=== PATIENT | female | born 1955 | race Caucasian/White ===

== ENCOUNTER → 2018-08-21 | Outpatient (CLI) | payer OTHER | END | disposition home or self-care (01) | LOC: CFH 13:28 | PROVIDERS: ATTEND Obstetrics & Gynecology | DX: Z12.31 Encounter for screening mammogram for malignant neoplasm of breast (principal) | CPT/HCPCS: 77063; 77067 ==

== ENCOUNTER → 2020-07-14 | Outpatient (CLI) | payer OTHER ==
[2020-07-14 14:34] LABS: ALANINE AMINOTRANSFERASE 24 U/L (12-78); ALBUMIN 4.1 g/dL (3.4-5.0); ANION GAP 4 mmol/L (5-15); CALCIUM 8.8 mg/dL (8.5-10.1); CHLORIDE 109 mmol/L (98-107); CHOLESTEROL, TOTAL 188 mg/dL (140-239); CREATININE 0.82 mg/dL (0.55-1.02)
[2020-07-14 14:37] LABS: BASOPHILS % (AUTO) 1 % (0-1); EOSINOPHILS % (AUTO) 2 % (1-7); LYMPHOCYTES % (AUTO) 30 % (22-44); MEAN CORPUSCULAR HEMOGLOBIN 29.7 pg (27.0-34.8); MEAN PLATELET VOLUME 7.5 fL (7.4-10.4); MONOCYTES % (AUTO) 9 % (2-9); NEUTROPHILS % (AUTO) 57 % (42-75); PLATELET COUNT 335 x10^3/uL (130-400); RED BLOOD COUNT 4.88 x10^6/uL (3.82-5.3)
[2020-07-14 14:39] LABS: MD NO
[2020-07-14 14:44] LABS: ALKALINE PHOSPHATASE 64 U/L (45-117); BILIRUBIN,TOTAL 0.9 mg/dL (0.2-1.0); HDL CHOL % 33 % (28-40); HDL CHOLESTEROL (DIRECT) 62 mg/dL (40-60); LDL CHOLESTEROL,CALCULATED 111 mg/dL (54-169); LDL/HDL RATIO 1.8 (0.5-3.0); TOTAL PROTEIN 7.6 g/dL (6.4-8.2); TRIGLYCERIDES 74 mg/dL (50-200); VLDL CHOLESTEROL 15 mg/dL (0-25)
[2020-07-14 14:50] LABS: MICROSCOPIC INDICATED
== END | disposition home or self-care (01) ==
LOC: LAB 14:02
PROVIDERS: ATTEND Family Medicine
DX: Z00.00 Encounter for general adult medical examination without abnormal findings (principal); E78.2 Mixed hyperlipidemia; E03.9 Hypothyroidism, unspecified; E55.9 Vitamin D deficiency, unspecified
CPT/HCPCS: 36415; 80053; 80061; 81001; 82306; 84443; 85025; 87086

== ENCOUNTER → 2020-09-23 | Outpatient (CLI) | payer OTHER | END | disposition home or self-care (01) | LOC: CFH 07:28 | PROVIDERS: ATTEND Obstetrics & Gynecology | DX: Z12.31 Encounter for screening mammogram for malignant neoplasm of breast (principal) | CPT/HCPCS: 77063; 77067 ==